=== PATIENT | male | born 1945 | race Caucasian/White ===

== ENCOUNTER 2020-12-12 10:37 | Emergency (ER) | payer BC, MEDICARE ==
[2020-12-12 10:56] LABS: BASOPHILS # (AUTO) 0.1 10^3/uL (0.0-0.1); BASOPHILS % (AUTO) 0.8 %; EOSINOPHILS # (AUTO) 0.4 10^3/uL (0.0-0.7); HGB - HEMOGLOBIN 16.3 g/dL (14.0-18.0); LYMPHOCYTES # (AUTO) 1.9 10^3/uL (1.5-3.5); LYMPHOCYTES % (AUTO) 28.8 %; MEAN CORPUSCULAR HEMOGLOBIN 31.7 pg (27.0-31.0); MEAN CORPUSCULAR VOLUME 93.4 fL (80.0-94.0); MEAN PLATELET VOLUME 10.6 fL (7.4-11.4); MONOCYTES # (AUTO) 0.5 10^3/uL (0.0-1.0); MONOCYTES % (AUTO) 6.9 %; NEUTROPHILS # (AUTO) 3.7 10^3/uL (1.5-6.6); NEUTROPHILS % (AUTO) 57.2 %; PLT - PLATELET COUNT 173 10^3/uL (130-450); RED BLOOD COUNT 5.14 10^6/uL (4.70-6.10); RED CELL DISTRIBUTION WIDTH 12.3 % (12.0-15.0); WHITE BLOOD COUNT 6.5 x10^3/uL (4.8-10.8)
--- NOTE | 2020-12-12 11:05 | XRAY Report ---
PROCEDURE: Chest 1 View X-Ray INDICATIONS: Chest pain TECHNIQUE: One view of the chest was acquired. COMPARISON: None FINDINGS: Surgical changes and devices: None. Lungs and pleura: No pleural effusions or pneumothorax. Lungs are clear. Mediastinum: Mediastinal contours appear normal. Heart size is normal. Bones and chest wall: No suspicious bony lesions. Overlying soft tissues appear unremarkable. IMPRESSION: No acute cardiopulmonary disease process. Reviewed by: Ce Wilburn MD, PhD on 12/12/2020 10:03 AM [facility] Approved by: Ce Wilburn MD, PhD on 12/12/2020 10:03 AM [facility] Station ID: [id number]
[2020-12-12 11:14] LABS: ALBUMIN 4.1 g/dL (3.2-5.5); ALBUMIN/GLOBULIN RATIO 1.4 (1.0-2.2); CALCIUM 9.9 mg/dL (8.5-10.3); CREATININE 1.1 mg/dL (0.6-1.2); TOTAL PROTEIN 7.1 g/dL (6.7-8.2)
[2020-12-12] MEDS ORDERED: NITROGLYCERIN SL 0.4 MG TABLET SL STA (11:32)
--- NOTE | 2020-12-12 11:35 | ED Physician Documentation ---
PD HPI CHEST PAIN - Stated complaint Stated Complaint: CHEST/BACK PX - Chief complaint Chief Complaint: Cardiac - History obtained from History obtained from: Patient - Additional information Additional information: Patient comes emergency department chief complaint of back pain and chest pain on the left that started this morning when he woke up. Patient states he has a history of back pain previously, but it seems sharper than usual this morning. He states he woke up around 8:00 and that was when he noticed the sensation in his back. He states that a few minutes later, he noticed a sharp pain in his left breast area. Patient denies radiation of the pain to anywhere else. He states that he did not have any shortness of breath or nausea at that time, though after taking a couple of aspirin, he did notice a little nausea. Patient states that his pain is quite a bit better now, though he does still feel it. He states that taking deep breaths may make it a little worse, but that this is not noticeably so. He denies any worsening of the pain with walking or other exertion. Patient denies any other complaints at this time. Patient does note that he did have a stress test about 15 years ago, and this was negative. He also had an echocardiogram done last year to evaluate what he thinks is a small aortic aneurysm in his thoracic aorta. He states that at that time, they told him it was stable and had not changed significantly since the previous echo. Review of Systems Ten Systems: 10 systems reviewed and negative Constitutional: reports: Reviewed and negative Eyes: reports: Reviewed and negative Ears: reports: Reviewed and negative Nose: reports: Reviewed and negative Throat: reports: Reviewed and negative Cardiac: reports: Chest pain / pressure Respiratory: reports: Reviewed and negative. denies: Dyspnea GI: reports: Nausea. denies: Abdominal Pain : reports: Reviewed and negative Skin: reports: Reviewed and negative Musculoskeletal: reports: Back pain. denies: Extremity pain, Extremity swelling Neurologic: reports: Reviewed and negative Psychiatric: reports: Reviewed and negative Endocrine: reports: Reviewed and negative Immunocompromised: reports: Reviewed and negative PD PAST MEDICAL HISTORY - Past Medical History Past Medical History: Yes Cardiovascular: Hypertension - Allergies Allergies/Adverse Reactions: Allergies Allergy/AdvReac Type Severity Reaction Status Date / Time No Known Drug Allergies Allergy Verified 12/12/20 10:45 - Social History Does the pt smoke?: No Smoking Status: Never smoker PD ED PE NORMAL - Vitals Vital signs reviewed: Yes - General General: Alert and oriented X 3, No acute distress, Well developed/nourished - HEENT HEENT: Atraumatic, PERRL, EOMI, Moist mucous membranes - Neck Neck: Supple, no meningeal sign - Cardiac Cardiac: RRR, No murmur, Strong equal pulses - Respiratory Respiratory: No respiratory distress, Clear bilaterally - Abdomen Abdomen: Soft, Non tender, Non distended - Derm Derm: Normal color, Warm and dry, No rash - Extremities Extremities: No deformity, No edema, No calf tenderness / cord - Neuro Neuro: Alert and oriented X 3, 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, No motor deficit, No sensory deficit, Normal speech - Psych Psych: Normal mood, Normal affect Results - Vitals Vitals: Vital Signs - 24 hr 12/12/20 12/12/20 12/12/20 10:45 10:54 11:33 Temperature 37.0 C 36.7 C Heart Rate 60 69 70 Respiratory 18 17 18 Rate Blood Pressure 168/99 H 168/99 H 163/104 H O2 Saturation 100 98 99 12/12/20 12/12/20 12/12/20 12:30 13:00 13:26 Temperature Heart Rate 66 63 68 Respiratory 16 16 14 Rate Blood Pressure 135/75 H 128/76 128/76 O2 Saturation 99 97 98 Oxygen O2 Source Room air - EKG (time done) 1048 Rate: Rate (enter#) (76) Rhythm: NSR [place]: Normal Intervals: Normal MS QRS: Low voltage Ischemia: Normal ST segments. No: T wave inversion Compare to prior EKG: Old EKG unavailable Computer interpretation: Agree with computer - Labs Labs: Laboratory Tests 12/12/20 12/12/20 12/12/20 10:45 10:45 10:45 WBC 6.5 RBC 5.14 Hgb 16.3 Hct 48.0 MCV 93.4 MCH 31.7 H MCHC 34.0 RDW 12.3 Plt Count 173 MPV 10.6 Neut # (Auto) 3.7 Lymph # (Auto) 1.9 [place] # (Auto) 0.5 Eos # (Auto) 0.4 Baso # (Auto) 0.1 Absolute Nucleated RBC 0.00 Nucleated RBC % 0.0 Sodium 140 Potassium 4.1 Chloride 102 Carbon Dioxide 27 Anion Gap 11.0 BUN 17 Creatinine 1.1 Estimated GFR (MDRD) 66 L Glucose 102 H Calcium 9.9 Total Bilirubin 1.0 AST 30 ALT 46 Alkaline Phosphatase 53 Troponin I High Sens 3.3 Total Protein 7.1 Albumin 4.1 Globulin 3.0 Albumin/Globulin Ratio 1.4 Lipase 29 12/12/20 12:35 WBC RBC Hgb Hct MCV MCH MCHC RDW Plt Count MPV Neut # (Auto) Lymph # (Auto) [place] # (Auto) Eos # (Auto) Baso # (Auto) Absolute Nucleated RBC Nucleated RBC % Sodium Potassium Chloride Carbon Dioxide Anion Gap BUN Creatinine Estimated GFR (MDRD) Glucose Calcium Total Bilirubin AST ALT Alkaline Phosphatase Troponin I High Sens 3.1 Total Protein Albumin Globulin Albumin/Globulin Ratio Lipase - Rads (name of study) CXR Radiology: Final report received, EMP read indepedently, See rad report (NAD) PD MEDICAL DECISION MAKING - ED course Complexity details: reviewed results, re-evaluated patient, considered differential, d/w patient ED course: The patient was worked up with EKG, which was unremarkable, and cardiac labs, as well as chest x-ray. Initial work-up was completely negative. The patient was given 1 sublingual nitroglycerin, with minimal relief, and repeat troponin was ordered. This was found to be slightly lower than the first 1, which was normal. The patient was feeling better and I feel he was stable for discharge home. I discussed with the patient that it is very important that he follows up with his primary care physician soon as able to get a stress test done. We have discussed the usual indications for return to the emergency department. Departure - Departure Disposition: 01 Home, Self Care Clinical Impression: Chest pain Qualifiers: Chest pain type: unspecified Qualified Code(s): R07.9 - Chest pain, unspecified Condition: Stable Instructions: ED Chest Pain Atypical Unkn Cause Comments: Your EKG looks good today and both sets of your cardiac enzymes are negative. It is not clear exactly what caused the increased back pain, as well as the added chest pain this morning. However, there is no evidence of a "heart attack" or other emergent cause of your pain. The most prudent thing to follow up this episode would be for you to call your primary care physician's office this afternoon and set up an appointment to be seen within the next week to discuss having a follow-up stress test done. If you develop worsening chest pain, especially if radiating to your neck, shoulder or arm, and associated with nausea, shortness of breath, and/or sweating, you should return to the emergency department immediately. Discharge Date/Time: 12/12/20 13:26
[2020-12-12 13:07] VITALS: BP 128/76
== END 2020-12-12 13:26 | disposition home or self-care (01) ==
LOC: ED 10:37
DX: R07.89 Other chest pain (principal); I10 Essential (primary) hypertension
CPT/HCPCS: 36415; 71045; 80053; 83690; 84484; 85025; 93005; 99284; A9270

== ENCOUNTER 2022-06-07 14:04 | Emergency (ER) | payer MEDICARE ==
--- OUTSIDE RECORDS SUMMARY | 2022-06-07 14:11 | EXTERNAL MEDICAL SUMMARY RPT | Continuity of Care Document ---
:1945 Author Organization [facility] Address [address] [place] [address] Phone Allergies No information. Encounters No information. Functional Status No information. Immunizations No information. Medications date description facility +0000 ibuprofen All [id number]+0000 enalapril maleate All [id number]+0000 ibuprofen All [id number]+0000 rosuvastatin All [id number]+0000 enalapril maleate All [id number]+0000 rosuvastatin All Problems No information. Procedures date description facility +0000 Visit Code Hold All Results/Labs No information. Social History date description facility +0000 Never smoker All Vital Signs date measurement value units +0000 BMI BMI 25.92 kg/m2 [id number]+0000 BP_diastolic BP_diastolic 73 mm[H g] 63243831585357+0000 BP_systolic BP_systolic 124 mm[Hg] 94980728800727+0000 heart_rate heart_rate 71 /min 13544351888971+0000 height_metric height_metric 167.64 cm 86455995717200+0000 height_standard height_standard 66 in 83564147956024+0000 respiration_rate respiration_rate 16 /min 51488498927081+0000 temperature_metric temperature_metric 36.67 C 86813415849765+0000 temperature_standard temperature_standard 9 8 F 06221775576049+0000 weight_metric weight_metric 72.57 kg 55338816354384+0000 weight_standard weight_standard 160 lb
[2022-06-07 14:31] VITALS: BP 114/63
--- NOTE | 2022-06-07 15:31 | CT Report ---
PROCEDURE: HEAD WO INDICATIONS: struck in head; pain and confused TECHNIQUE: Noncontrast 4.5 mm thick angled axial sections acquired from the foramen magnum to the vertex. For r adiation dose reduction, the following was used: automated exposure control, adjustment of mA and/or kV according to patient size. COMPARISON: None. FINDINGS: Image quality: There is streak artifact seen through the skull base. CSF spaces: Basal cisterns are patent. No extra-axial fluid collections. Ventricles are normal in size and shape. Brain: No midline shift. No intracranial masses or hemorrhage. [place]-white matter interface is norm al. Skull and face: Calvarium and visualized facial bones are intact, without suspicious lesions. Sinuses: Visualized sinuses and mastoids are clear. IMPRESSION: No intracranial hemorrhage is seen. No significant intracranial abnormality is seen. Reviewed by: Mike House MD on 06/07/2022 2:30 PM [facility] Approved by: Mike House MD on 06/07/2022 2:30 PM [facility] Station ID: [id number]
--- NOTE | 2022-06-07 15:52 | ED Physician Documentation ---
History of Present Illness - Stated complaint Stated Complaint: HEAD INJ - Chief complaint Chief Complaint: Trauma Hd/Nk - History obtained from History obtained from: Patient - History of Present Illness Timing: Today Pain level max: 3 Pain level now: 2 - Additonal information Additional information: Patient was at home today working in his garden when he had a pole stuck in the ground. The pole fell and struck him on the right side of the head causing an abrasion. No loss of consciousness. No numbness or tingling. No difficulty with speech. Does not take any blood thinners. He states he did feel "dazed" initially. He is feeling normal now. He went to the walk-in clinic and they sent him here for a head CT. No neck or back pain. No focal neurological deficits. Nothing makes it better or worse Review of Systems Constitutional: denies: Fever, Chills GI: denies: Vomiting, Diarrhea Skin: denies: Rash Musculoskeletal: denies: Neck pain, Back pain Neurologic: denies: Focal weakness, Numbness, Syncope, Confused, LOC PD PAST MEDICAL HISTORY - Past Medical History Cardiovascular: Hypertension - Allergies Allergies/Adverse Reactions: Allergies Allergy/AdvReac Type Severity Reaction Status Date / Time No Known Drug Allergies Allergy Verified 12/12/20 10:45 - Social History Does the pt smoke?: No Smoking Status: Never smoker PD ED PE NORMAL - Vitals Vital signs reviewed: Yes - General General: Alert and oriented X 3, No acute distress - HEENT HEENT: PERRL, EOMI, Moist mucous membranes, Other (No scalp hematomas or palpable skull fractures. Small abrasion to the right zoroastrian area.) - Neck Neck: Supple, no meningeal sign, No bony TTP, C-Spine cleared by NEXUS criteria - Cardiac Cardiac: RRR, Strong equal pulses - Respiratory Respiratory: No respiratory distress, Clear bilaterally - Abdomen Abdomen: Soft, Non tender, Non distended - Back Back: No spinal TTP - Derm Derm: Warm and dry - Extremities Extremities: Normal ROM s pain - Neuro Neuro: Alert and oriented X 3, construction technician 2-12 intact, No motor deficit, No sensory deficit, Normal speech Eye Opening: Spontaneous Motor: Obeys Commands Verbal: Oriented GCS Score: 15 - Psych Psych: Normal mood, Normal affect Results - Vitals Vitals: Vital Signs - 24 hr 06/07/22 14:27 Temperature 37.4 C Heart Rate 65 Respiratory 18 Rate Blood Pressure 114/63 O2 Saturation 96 Oxygen O2 Source Room air - Rads (name of study) Head CT Radiology: Final report received, EMP read contemporaneously, See rad report (No acute intracranial abnormality) PD MEDICAL DECISION MAKING - ED course Complexity details: reviewed results, re-evaluated patient, considered differential, d/w patient ED course: 76-year-old male status post closed head injury, mild abrasion. Tdap was given at the walk-in clinic. Bandage placed here. Head CT is negative. Head injury instructions given at bedside. No neck or back pain. Patient counseled regarding signs and symptoms for which I believe and urgent re-evaluation would be necessary. Patient with good understanding of and agreement to plan and is comfortable going home at this time This document was made in part using voice recognition software. While efforts are made to proofread this document, sound alike and grammatical errors may occur. Departure - Departure Disposition: 01 Home, Self Care Clinical Impression: Scalp abrasion Qualifiers: Encounter type: initial encounter Qualified Code(s): S00.01XA - Abrasion of scalp, initial encounter Closed head injury Qualifiers: Encounter type: initial encounter Qualified Code(s): S09.90XA - Unspecified injury of head, initial encounter Condition: Good Instructions: ED Head Injury Closed Follow-Up: OSEAS MARTIN MD [Primary Care Provider] - Within 1 week Comments: Please follow-up with your doctor for further care. Return if you worsen. Your head CT is negative today. Discharge Date/Time: 06/07/22 16:04
== END 2022-06-07 16:04 | disposition home or self-care (01) ==
LOC: ED 14:04
DX: S00.01XA Abrasion of scalp, initial encounter (principal); S09.90XA Unspecified injury of head, initial encounter; W20.8XXA Other cause of strike by thrown, projected or falling object, initial encounter; Y93.H2 Activity, gardening and landscaping; Y92.007 Garden or yard of unspecified non-institutional (private) residence as the place of occurrence of the external cause
CPT/HCPCS: 99282; 99284

== ENCOUNTER 2023-06-29 09:57 | Outpatient (CLI) | payer MEDICARE ==
[2023-06-29 10:28] LABS: ALBUMIN 4.5 g/dL (3.2-5.5); ALBUMIN/GLOBULIN RATIO 1.7 (1.0-2.2); BILIRUBIN,DIRECT 0.13 mg/dL (0.03-0.18); CALCIUM 9.5 mg/dL (8.5-10.3); TOTAL PROTEIN 7.2 g/dL (6.4-8.9)
== END 2023-06-29 09:58 | disposition home or self-care (01) ==
LOC: LAB 09:57
PROVIDERS: ATTEND Nurse Practitioner
DX: B35.1 Tinea unguium (principal)
CPT/HCPCS: 36415; 80053; 82248

== ENCOUNTER 2023-08-16 08:00 | Outpatient (CLI) | payer MEDICARE ==
--- NOTE | 2023-08-17 08:41 | XRAY Report ---
PROCEDURE: Chest 2 View X-Ray INDICATIONS: ACUTE CHEST PAIN TECHNIQUE: 2 views of the chest were acquired. COMPARISON: Chest radiograph on December 12, 2020. FINDINGS: Surgical changes and devices: None. Lungs and pleura: No pleural effusions or pneumothorax. Lungs are clear. Mediastinum: Mediastinal contours appear normal. Heart size is normal. Bones and chest wall: No suspicious bony lesions. Overlying soft tissues appear unremarkable. Upper abdomen: Cholecystectomy clips. IMPRESSION: No acute cardiopulmonary process. Reviewed by: Walter Mann MD on 08/16/2023 12:46 PM PDT Approved by: Walter Mann MD on 08/16/2023 12:46 PM PDT Station ID: [id number]
== END 2023-08-16 23:59 | disposition home or self-care (01) ==
LOC: DI.S 08:00
PROVIDERS: ATTEND Physician Assistant
DX: R07.89 Other chest pain (principal); R10.13 Epigastric pain; Z86.79 Personal history of other diseases of the circulatory system

== ENCOUNTER 2023-09-09 08:54 | Outpatient (CLI) | payer MEDICARE ==
[2023-09-09 15:16] LABS: BASOPHILS # (AUTO) 0.1 10^3/uL (0.0-0.1); BASOPHILS % (AUTO) 1.3 %; HCT - HEMATOCRIT 45.2 % (42.0-52.0); HGB - HEMOGLOBIN 15.1 g/dL (14.0-18.0); LYMPHOCYTES # (AUTO) 1.3 10^3/uL (1.5-3.5); LYMPHOCYTES % (AUTO) 21.5 %; MEAN CORPUSCULAR HEMOGLOBIN 30.6 pg (27.0-31.0); MEAN CORPUSCULAR HGB CONC 33.4 g/dL (32.0-36.0); MEAN CORPUSCULAR VOLUME 91.7 fL (80.0-94.0); MEAN PLATELET VOLUME 11.4 fL (7.4-11.4); MONOCYTES # (AUTO) 0.4 10^3/uL (0.0-1.0); MONOCYTES % (AUTO) 7.1 %; NEUTROPHILS # (AUTO) 4.3 10^3/uL (1.5-6.6); NEUTROPHILS % (AUTO) 69.9 %; PLT - PLATELET COUNT 177 10^3/uL (130-450); RED BLOOD COUNT 4.93 10^6/uL (4.70-6.10); RED CELL DISTRIBUTION WIDTH 12.6 % (12.0-15.0); WHITE BLOOD COUNT 6.2 x10^3/uL (4.8-10.8)
[2023-09-09 15:53] LABS: ALBUMIN 4.4 g/dL (3.2-5.5); ALBUMIN/GLOBULIN RATIO 1.8 (1.0-2.2); ALKALINE PHOSPHATASE 61 IU/L (42-121); ALT ALANINE AMINOTRANSFERASE 32 IU/L (10-60); AST ASPARTATE AMINOTRANSFERASE 22 IU/L (10-42); BILIRUBIN,TOTAL 0.7 mg/dL (0.2-1.0); BUN - BLOOD UREA NITROGEN 16 mg/dL (6-20); CALCIUM 9.5 mg/dL (8.5-10.3); CARBON DIOXIDE - CO2 28 mmol/L (21-32); CHLORIDE 106 mmol/L (101-111); CHOL/HDL RATIO 3.2 (<5.0); CHOLESTEROL 147 mg/dL; CREATININE 1.3 mg/dL (0.6-1.3); GFR - MDRD 54 (>89); GLUCOSE 100 mg/dL (74-104); HDL CHOLESTEROL 46 mg/dL; LDL CHOLESTEROL,CALCULATED 69 mg/dL; LDL/HDL RATIO 1.5 (<3.6); POTASSIUM 4.4 mmol/L (3.5-4.5); SODIUM 140 mmol/L (135-145); TOTAL PROTEIN 6.8 g/dL (6.4-8.9); TRIGLYCERIDES 158 mg/dL (48-352); VLDL CHOLESTEROL 32 mg/dL
== END 2023-09-09 08:55 | disposition home or self-care (01) ==
LOC: LAB.S 08:54
PROVIDERS: ATTEND Nurse Practitioner
DX: Z79.899 Other long term (current) drug therapy (principal)
CPT/HCPCS: 36415; 80053; 80061; 83721; 85025

== ENCOUNTER 2023-10-06 11:26 | Outpatient (CLI) | payer MEDICARE ==
[2023-10-06 14:38] LABS: BASOPHILS # (AUTO) 0.1 10^3/uL (0.0-0.1); BASOPHILS % (AUTO) 1.2 %; EOSINOPHILS # (AUTO) 0.1 10^3/uL (0.0-0.7); EOSINOPHILS % (AUTO) 1.4 %; HCT - HEMATOCRIT 47.4 % (42.0-52.0); HGB - HEMOGLOBIN 15.5 g/dL (14.0-18.0); LYMPHOCYTES # (AUTO) 1.3 10^3/uL (1.5-3.5); LYMPHOCYTES % (AUTO) 25.3 %; MEAN CORPUSCULAR HEMOGLOBIN 30.5 pg (27.0-31.0); MEAN CORPUSCULAR HGB CONC 32.7 g/dL (32.0-36.0); MEAN CORPUSCULAR VOLUME 93.1 fL (80.0-94.0); MEAN PLATELET VOLUME 11.5 fL (7.4-11.4); MONOCYTES # (AUTO) 0.4 10^3/uL (0.0-1.0); MONOCYTES % (AUTO) 8.5 %; NEUTROPHILS # (AUTO) 3.2 10^3/uL (1.5-6.6); NEUTROPHILS % (AUTO) 63.4 %; PLT - PLATELET COUNT 153 10^3/uL (130-450); RED BLOOD COUNT 5.09 10^6/uL (4.70-6.10); RED CELL DISTRIBUTION WIDTH 12.5 % (12.0-15.0); WHITE BLOOD COUNT 5.1 x10^3/uL (4.8-10.8)
[2023-10-06 15:18] LABS: ALBUMIN 4.5 g/dL (3.2-5.5); ALBUMIN/GLOBULIN RATIO 2.4 (1.0-2.2); BILIRUBIN,TOTAL 0.9 mg/dL (0.2-1.0); CALCIUM 9.4 mg/dL (8.5-10.3); POTASSIUM 4.3 mmol/L (3.5-4.5); TOTAL PROTEIN 6.4 g/dL (6.4-8.9)
== END 2023-10-06 11:27 | disposition home or self-care (01) ==
LOC: LAB.S 11:26
PROVIDERS: ATTEND Nurse Practitioner
DX: Z79.899 Other long term (current) drug therapy (principal)
CPT/HCPCS: 36415; 80053; 85025

== ENCOUNTER 2024-06-09 08:00 | Outpatient (CLI) | payer MEDICARE ==
[2024-06-09 18:40] LABS: BILIRUBIN,URINE NEGATIVE (NEGATIVE); GLUCOSE, URINE (UA) NEGATIVE (NEGATIVE); KETONES,URINE (UA) NEGATIVE (NEGATIVE); LEUKOCYTE ESTERASE, URINE NEGATIVE (NEGATIVE); NITRITE,URINE NEGATIVE (NEGATIVE); OCCULT BLOOD,URINE NEGATIVE (NEGATIVE); PROTEIN,URINE NEGATIVE (NEGATIVE); UROBILINOGEN,URINE 0.2 (NORMAL) E.U./dL (NORMAL)
[2024-06-09 18:48] LABS: CLARITY,URINE CLEAR (CLEAR)
[2024-06-09 19:32] LABS: WBC,URINE 0-3 /HPF (0-3)
[2024-06-09 19:33] LABS: BACTERIA,URINE None Seen /HPF (None Seen); RBC,URINE None Seen /HPF (0-5); SQUAMOUS EPITHELIAL CELL,UR NONE SEEN (<= Few)
== END 2024-06-09 23:59 | disposition home or self-care (01) ==
LOC: LAB 08:00
PROVIDERS: ATTEND Urology
DX: R31.9 Hematuria, unspecified (principal)
CPT/HCPCS: 81001; 87086

== ENCOUNTER 2024-06-14 07:12 | Outpatient (CLI) | payer MEDICARE | END 2024-06-14 07:13 | disposition home or self-care (01) | LOC: LAB.S 07:12 | PROVIDERS: ATTEND Urology | DX: N52.9 Male erectile dysfunction, unspecified (principal) | CPT/HCPCS: 36415; 84403 ==

== ENCOUNTER 2024-08-03 08:00 | Outpatient (CLI) | payer MEDICARE | END 2024-08-03 23:59 | disposition home or self-care (01) | LOC: LAB.S 08:00 | PROVIDERS: ATTEND Registered Nurse | DX: R05.9 Cough, unspecified (principal); R07.0 Pain in throat | CPT/HCPCS: 87070 ==